=== PATIENT | male | born 1970 | race Caucasian/White ===

== ENCOUNTER 2025-02-27 11:02 | Emergency (ER) | payer OTHER, SELFPAY ==
--- NOTE | ~2025-02-27 | XR_ITS ---
EXAMINATION: XR LUMBOSACRAL SPINE CLINICAL INFORMATION: low back pain COMPARISON: None available. TECHNIQUE: Three views of the lumbosacral spine. FINDINGS: Vestigial ribs are present at T12. There are 5 nonrib-bearing lumbar segments. There is subtle loss of height from superior L1. T12-L1: There is mild disc space narrowing with endplate sclerosis and osteophytes. L1-L2: Unremarkable L2-L3: Unremarkable L3-L4: Mild loss of disc height and posterior endplate osteophytes with mild facet sclerosis. L4-L5: There is mild loss disc height with endplate sclerosis and small osteophytes. There is also facet sclerosis. L5-S1: Unremarkable XR/XR lumbar spine 2-3V IMPRESSION: There is mild loss of height from superior L1 and endplate sclerosis which could be degenerative, but could be related to a mild compression fracture. Correlate with history and symptoms. Mild multilevel degenerative changes. Electronically signed by: Valeriano Turner MD 02/27/2025 12:19 PM DAVION TODD
--- NOTE | ~2025-02-27 | CT_ITS ---
EXAMINATION: CT ABDOMEN PELVIS WITHOUT IV CONTRAST HISTORY: back pain. blood in urine. kidney stones> COMPARISON: There are no prior studies available for comparison. TECHNIQUE: CT scan of the abdomen and pelvis was performed without contrast using standard departmental protocol. Coronal and sagittal reformatted images were generated and reviewed. Oral contrast material was not administered per department protocol. This CT exam was performed with one or more of the following dose reduction techniques: automated exposure control, adjustment of the mA and/or kV according to patient size, use of iterative reconstruction technique. DLP: 710 mGy-cm FINDINGS: LOWER CHEST: The visualized lung bases are clear. There is no pleural effusion. CARDIOVASCULATURE: The heart is normal in size. There is no pericardial effusion. LIVER: The liver is normal in size and contour. The liver has an unremarkable unenhanced appearance. GALLBLADDER / BILE DUCTS: The gallbladder is unremarkable. There is no intra or extrahepatic biliary ductal dilatation. SPLEEN: The spleen is normal in size and has an unremarkable unenhanced appearance. PANCREAS: The pancreas has an unremarkable unenhanced appearance. ADRENAL GLANDS: Unremarkable. KIDNEYS/RETROPERITONEUM: No renal or ureteral calculi are identified. There is no hydronephrosis or hydroureter. There is a probable 1.8 cm cyst in the interpolar region of the right kidney. A smaller hyperdense focus is seen at the upper pole which may represent a proteinaceous cyst. LYMPH NODES: No retroperitoneal lymphadenopathy is identified in the abdomen or pelvis. VASCULATURE: The abdominal aorta demonstrates atherosclerotic calcification, but is normal in caliber. MESENTERY/PERITONEUM: No free fluid. No masses. There is no free intraperitoneal gas. STOMACH: The stomach is collapsed, limiting evaluation. SMALL BOWEL: The small bowel is normal in caliber. COLON: The colon is unremarkable. APPENDIX: Normal. URINARY BLADDER/PELVIC ORGANS: The urinary bladder is unremarkable. The prostate is normal in size. BONES / SOFT TISSUES: There is a small fat-containing umbilical hernia. The bones are intact. CT/CT abdomen pelvis wo IV con IMPRESSION: No evidence of nephrolithiasis or ureteral obstruction. Possible subcentimeter proteinaceous cyst at the upper pole of the right kidney. This could be confirmed with ultrasound. Electronically signed by: Jack Meadows MD 02/27/2025 03:06 PM EST RP
--- NOTE | 2025-02-27 11:37 | ED_ITS ---
HPI - Back Pain/Injury General Chief Complaint: Back Pain/Injury Stated Complaint: lower back pain Time Seen by Provider: 02/27/25 11:42 Source: patient, family and old records reviewed Mode of arrival: ambulatory Limitations: no limitations History of Present Illness ED Provider: ARI FLORES Narrative: 54-year-old male with past medical history of lumbar herniated disc he has also had kidney stones but this feels different from kidney stones. 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 He has no associated neuro symptoms, urinary symptoms, fevers, chills. He has no loss of bowel or bladder incontinence, he has no saddle anesthesia. He has no red flags such as IVDA or blood thinner use. He was not sure what to take for it so he has not had any analgesia at this time. It does bring down to his buttocks. MD elicited complaint: back pain and back injury Pertinent past history: prior back pain Onset (ago): day(s) (few) Timing: intermittent Severity: moderate Similar Symptoms Previously: No Quality: throbbing Location: lumbar spine and left flank Radiation: buttocks Exacerbating factors: movement, walking and coughing/sneezing Relieving factors: none Associated symptoms: denies other symptoms Work related injury: No Related Data Previous Rx's ?Medication ?Instructions ?Recorded diazepam 5 mg tablet (Valium) 5 mg PO TID PRN muscle s pasm #10 02/27/25 tabs lidocaine 5 % topical patch 1 patch topical DAILY #30 ea 02/27/25 Allergies Allergy/AdvReac Type Severity Reaction Status Date / Time No Known Allergies Allergy Verified 02/27/25 11:41 Review of Systems 2 Review of Systems: Constitutional : No Weight loss, No Fever, No Chills, ENT/Mouth : No Hearing loss, No Ear Pain, No Nasal Congestion, No Sinus Pain, No Hoarseness, No sore throat, No Rhinorrhea, No Swallowing Difficulty Cardiovascular : No Chest Pain, No SOB Respiratory : No Cough, No Dyspnea Gastrointestinal : No Nausea, No Vomiting, No Diarrhea, No abdominal Pain, No Hematochezia, No Melena Genitourinary : No Dysuria, No Urinary Frequency, No Hematuria, No Urinary Incontinence, Musculoskeletal : positive back pain Skin : No Skin Lesions, No rash Neuro : No Weakness, No Numbness, No Paresthesias, no loss of bowel or bladder incontinence, no saddle anesthesia Yes all other systems are reviewed and are negative PENDING SALE TO [facility] Past Medical History Attestation statement: The following information was validated with the patient. Source: old records reviewed Medical History Herniated lumbar intervertebral disc Social History Social History (Updated 02/27/25 @ 11:39 by Zaina Hyman DO) Patient Tobacco Use Status: Former Tobacco user Advance Directives: No Advance Directives Information Provided: Yes Physical Exam 2 Vital Signs: Vital Signs: Last Vital Signs Temp 97.5 F 02/27/25 16:25 Pulse 81 02/27/25 16:25 Resp 18 02/27/25 16:25 BP 161/97 H 02/27/25 16:25 Pulse Ox 98 02/27/25 16:25 O2 Del Method Room Air 02/27/25 16:25 BMI result Body Mass Index 34.6 Appearance: Alert. Oriented X3. No acute distress. Eyes: Pupils equal, round and reactive to light. ENT: Pharynx normal. Neck: Normal inspection. Neck supple. CVS: Normal heart rate and rhythm. Pulses normal. Respiratory: No respiratory distress. Breath sounds normal. Abdomen: Soft and nontender. Back: He has tenderness to palpation along the left PSIS. He is neurovascularly intact distally. He has a 2+ bilateral deep tendon reflex, he has 2+ DP pulses. He has SILT and inner thighs. Skin: Skin warm and dry. Normal skin color. Normal skin turgor. Extremities: No lower extremity edema. Neuro: Oriented X 3. No motor deficit. No sensory deficit. CN2-12 intact Course Reevaluation(s) Reevaluation #1: Patient has had labs drawn and cat scan due to slight blood in urine. CT scan negative for kidney stones but does shows cysts with patient was made aware of. Labs. All functions normal. Patient is discharged with Valium and pain medication. Patient given instructions for follow-up with Dr. Pettit's aviation technical systems specialist Time: 16:06 Medications Administered Discontinued Medications Generic Name Dose Route Start Last Admin Trade Name Freq PRN Reason Stop Dose Admin Diazepam 5 mg 02/27/25 11:41 02/27/25 11:48 Diazepam 5 Mg Tablet PO 02/27/25 11:42 5 mg ONCE ONE Administration Ketorolac Tromethamine 30 mg 02/27/25 12:59 02/27/25 13:10 Ketorolac Tromethamine 30 Mg/Ml Vial IM 02/27/25 13:00 30 mg ONCE ONE Administration Lidocaine 1 patch 02/27/25 11:41 02/27/25 11:48 Lidocaine 4 % Patch Adh..Patch TRANSDERMA 02/27/25 11:42 1 patch ONCE ONE Administration Protocol Medical Decision Making Medical Decision Making [facility] Narrative: 54-year-old male with remote past medical history of remote lumbar herniated discs as well as renal colic now here with left low back pain and mild radicular symptoms to the left buttock. He has no red flags on exam and no cauda equina. Overall benign appearing it is reproducible on exam. At this time is going to start on a lidocaine patch and Valium. Given his age I will obtain an x-ray and urine study. Differential Diagnosis Differential Diagnoses: The differential diagnosis associated with the presentation includes Back spasm, lumbar radiculopathy, herniated disc, less likely kidney stone given prior episode this does not feel similar his abdomen is benign I do not think he has an abdominal aortic aneurysm He has no signs of cauda equina on exam Admission/Observation Consideration of admission/observation: Escalation of care including admission/observation considered Lab Data [facility] Lab Attestation statement: I reviewed the patient's lab results. 02/27/25 14:37 02/27/25 14:37 Labs: Lab Results 02/27/25 02/27/25 Range/Units 12:39 14:37 WBC 6.4 (4.8-10.8) X10*3/uL RBC 4.86 (4.60-5.80) X10*6/uL Hgb 16.1 (14.0-18.0) g/dl Hct 46.2 (42.0-52.0) % MCV 95.1 (80.0-98.0) fL MCH 33.1 H (27.0-33.0) pg MCHC 34.8 (31.0-36.0) g/dl RDW 12.3 (11.0-16.0) % Plt Count 205 (160-400) X10*3/uL MPV 10.2 (9.4-12.4) fL Immature Gran % (Auto) 0.3 (0.0-0.4) % Neut % (Auto) 58.6 (45-73) % Lymph % (Auto) 32.4 (20-40) % [place] % (Auto) 7.3 (2-11) % Eos % (Auto) 0.8 (0-4) % Baso % (Auto) 0.6 (0-2) % Lymph # (Auto) 2.1 (1.2-4.9) X10*3/uL [place] # (Auto) 0.5 (0.1-1.2) X10*3/uL Eos # (Auto) 0.1 (0.0-0.4) X10*3/uL Baso # (Auto) 0.0 (0.0-0.2) X10*3/uL Abs Immat Gran (auto) 0.02 (0.00-0.03) X10*3/uL Absolute Neuts (auto) 3.8 (2.0-8.3) x10*3/uL Absolute Nucleated RBC 0.000 (0.0-0.012) X10*3/uL Nucleated RBC % (auto) 0.0 (0.0-0.2) /100WBC Sodium 139 (135-145) mmol/L Potassium 4.2 (3.3-5.1) mmol/L Chloride 106 (96-108) mmol/L Carbon Dioxide 28 (22-29) mmol/L Anion Gap 9 L (12-20) BUN 15 (9-16) mg/dL Creatinine 0.80 (0.5-1.4) mg/dL Estim Creat Clear Calc 131.6 Estimated GFR > 60 Random Glucose 95 (60-115) mg/dL Calcium 8.5 (8.4-10.2) mg/dL Total Bilirubin 0.6 (0.0-1.0) mg/dL AST 45 H (5-37) U/L ALT 53 H (0-40) U/L Alkaline Phosphatase 51 (39-117) U/L Total Protein 7.3 (6.5-8.0) g/dL Albumin 4.2 (3.5-5.0) g/dL Urine Color Yellow Urine Appearance Cloudy Urine pH 6.0 (5.0-9.0) Ur Specific [place] 1.020 (1.005-1.025) Urine Protein Trace (Neg-Trace) mg/dL Urine Glucose (UA) Negative (Negative) mg/dL Urine Ketones Negative (Negative) mg/dL Urine Blood Moderate (2+) H (Negative) Urine Nitrite Negative (Negative) Ur Leukocyte Esterase Negative (Negative) Urine RBC 3-5 H (0-2) /HPF Urine WBC 0-5 (0-5) /HPF Ur Squamous Epith Cells 0-2 (0-2) /HPF Urine Bacteria None Seen (None Seen) Hyaline Casts 0-2 (0-2) /LPF Independent Interpretation I performed an independent interpretation of an: Plain X-Ray Radiology Impression Discussion of test interpretation with radiology: I have reviewed the radiologist's reading. Independent Historian Clinical information obtained from an independent historian. History obtained from or confirmed by: Spouse External Record Review External record reviewed: Outpatient record Prescription Management I considered prescription management with: Pain Medication and Other Discharge Plan Discharge Clinical Impression: Lumbar radiculopathy Patient Disposition: Home, Self-Care Instructions: Lumbar Radiculopathy (ED) Additional Instructions: At this time there is likely old possible compression fracture of L1 she does not really correlate with your symptoms will likely your prior old injury Your urine was unremarkable You need to rest and limit lifting to 10 lb for 3 weeks Return for any worsening symptoms such as pain, numbness in the private area, loss of control of bowel or bladder Take medications as prescribed you can also alternate Tylenol and Motrin for your pain. FINDINGS: Vestigial ribs are present at T12. There are 5 nonrib-bearing lumbar segments. There is subtle loss of height from superior L1. T12-L1: There is mild disc space narrowing with endplate sclerosis and osteophytes. L1-L2: Unremarkable L2-L3: Unremarkable L3-L4: Mild loss of disc height and posterior endplate osteophytes with mild facet sclerosis. L4-L5: There is mild loss disc height with endplate sclerosis and small osteophytes. There is also facet sclerosis. L5-S1: Unremarkable XR/XR lumbar spine 2-3V IMPRESSION: There is mild loss of height from superior L1 and endplate sclerosis which could be degenerative, but could be related to a mild compression fracture. Correlate with history and symptoms. Mild multilevel degenerative changes. Prescriptions: New lidocaine 5 % adhesive patch,medicated 1 patch topical DAILY Qty: 30 0RF Rx Instructions: leave on most painful area for up to 12 hrs diazepam [Valium] 5 mg tablet 5 mg PO TID PRN (Reason: muscle spasm) Qty: 10 0RF Rx Instructions: side effect is drowsiness. Do not take at work or while driving. Referrals: Santiago Collins MD, PhD [Physician, Neuro Spine] - 2 days Referral Note: Lumbar radiculopathy compression fracture question Clinical Impression: Lumbar radiculopathy Stand Alone Forms: Work/School Release Interventions: ED Discharge Assessment Last Done: 02/27/25 16:25 Discharge Date/Time: 02/27/25 16:27 Print Language: [place]ayan
[2025-02-27 11:38] VITALS: BP 155/106; PULSE 88; RESP 18; TEMP 36.6; O2SAT 99; BMI 34.6
[2025-02-27 11:42] VITALS: BP 159/96
[2025-02-27] MEDS: Lidocaine 4 % Patch ADH..PATCH 1 PATCH TRANSDERMA (11:48)
[2025-02-27 12:47] LABS: Appearance Urine Cloudy; Glucose Urine UA Negative (Negative); PH 6.0 (5.0-9.0); Specific Gravity - Urine 1.020 (1.005-1.025); UMIC TRIGGER UACC YES
[2025-02-27 14:48] LABS: MANUAL DIFF FLAG NO
[2025-02-27 14:52] LABS: Hematocrit 46.2 % (42.0-52.0); Hemoglobin 16.1 g/dl (14.0-18.0); Imm Gran Abs Auto 0.02 X10*3/uL (0.00-0.03); Imm Gran Pct Auto 0.3 % (0.0-0.4); Lymphocytes Absolute Auto 2.1 X10*3/uL (1.2-4.9); Mean Corpuscular HGB Conc 34.8 g/dl (31.0-36.0); Mean Corpuscular Hemoglobin 33.1 pg (27.0-33.0); Mean Corpuscular Volume 95.1 fL (80.0-98.0); NRBC Abs Auto 0.000 X10*3/uL (0.0-0.012); NRBC Pct Auto 0.0 /100WBC (0.0-0.2); Platelet Count 205 X10*3/uL (160-400); Red Blood Count 4.86 X10*6/uL (4.60-5.80); White Blood Count 6.4 X10*3/uL (4.8-10.8)
[2025-02-27 15:05] LABS: Alanine Aminotransferase 53 U/L (0-40); Albumin Level 4.2 g/dL (3.5-5.0); Alkaline Phosphatase 51 U/L (39-117); Anion Gap 9 (12-20); Aspartate Amino Transferase 45 U/L (5-37); Blood Urea Nitrogen 15 mg/dL (9-16); Calcium 8.5 mg/dL (8.4-10.2); Carbon Dioxide 28 mmol/L (22-29); Chloride 106 mmol/L (96-108); Creatinine Clr Calc Pharmacy 131.6; Estimated Glomerular Filt Rate > 60; Potassium 4.2 mmol/L (3.3-5.1); Sodium 139 mmol/L (135-145); Total Protein 7.3 g/dL (6.5-8.0)
--- NOTE | 2025-02-27 15:58 | ED.GENADULT ---
HPI - General Adult General Chief complaint: Back Pain/Injury Stated complaint: lower back pain Time Seen by Provider: 02/27/25 11:42 Source: patient, family and old records reviewed Mode of arrival: ambulatory Limitations: no limitations Related Data Previous Rx's ?Medication ?Instructions ?Recorded diazepam 5 mg tablet (Valium) 5 mg PO TID PRN muscle spasm #10 02/27/25 tabs lidocaine 5 % topical patch 1 patch topical DAILY #30 ea 02/27/25 Allergies Allergy/AdvReac Type Severity Reaction Status Date / Time No Known Allergies Allergy Verified 02/27/25 11:41 [facility] Past Medical History Medical History Herniated lumbar intervertebral disc Social History Social History (Updated 02/27/25 @ 11:39 by Zaina Hyman DO) Patient Tobacco Use Status: Former Tobacco user Advance Directives: No Advance Directives Information Provided: Yes Physical Exam ED Vital Signs: Vital Signs - 24 hr 02/27/25 11:38 02/27/25 11:42 Temperature 98 F Pulse Rate 88 Respiratory Rate 18 Blood Pressure 155/106 H 159/96 H Pulse Oximetry 99 Oxygen Delivery Method Room Air BMI result Body Mass Index 34.6 Medications Administered Discontinued Medications Generic Name Dose Route Start Last Admin Trade Name Freq PRN Reason Stop Dose Admin Diazepam 5 mg 02/27/25 11:41 02/27/25 11:48 Diazepam 5 Mg Tablet PO 02/27/25 11:42 5 mg ONCE ONE Administration Ketorolac Tromethamine 30 mg 02/27/25 12:59 02/27/25 13:10 Ketorolac Tromethamine 30 Mg/Ml Vial IM 02/27/25 13:00 30 mg ONCE ONE Administration Lidocaine 1 patch 02/27/25 11:41 02/27/25 11:48 Lidocaine 4 % Patch Adh..Patch TRANSDERMA 02/27/25 11:42 1 patch ONCE ONE Administration Protocol Medical Decision Making Lab Data 02/27/25 14:37 02/27/25 14:37 Labs: Lab Results 02/27/25 02/27/25 Range/Units 12:39 14:37 WBC 6.4 (4.8-10.8) X10*3/uL RBC 4.86 (4.60-5.80) X10*6/uL Hgb 16.1 (14.0-18.0) g/dl Hct 46.2 (42.0-52.0) % MCV 95.1 (80.0-98.0) fL MCH 33.1 H (27.0-33.0) pg MCHC 34.8 (31.0-36.0) g/dl RDW 12.3 (11.0-16.0) % Plt Count 205 (160-400) X10*3/uL MPV 10.2 (9.4-12.4) fL Immature Gran % (Auto) 0.3 (0.0-0.4) % Neut % (Auto) 58.6 (45-73) % Lymph % (Auto) 32.4 (20-40) % [place] % (Auto) 7.3 (2-11) % Eos % (Auto) 0.8 (0-4) % Baso % (Auto) 0.6 (0-2) % Lymph # (Auto) 2.1 (1.2-4.9) X10*3/uL [place] # (Auto) 0.5 (0.1-1.2) X10*3/uL Eos # (Auto) 0.1 (0.0-0.4) X10*3/uL Baso # (Auto) 0.0 (0.0-0.2) X10*3/uL Abs Immat Gran (auto) 0.02 (0.00-0.03) X10*3/uL Absolute Neuts (auto) 3.8 (2.0-8.3) x10*3/uL Absolute Nucleated RBC 0.000 (0.0-0.012) X10*3/uL Nucleated RBC % (auto) 0.0 (0.0-0.2) /100WBC Sodium 139 (135-145) mmol/L Potassium 4.2 (3.3-5.1) mmol/L Chloride 106 (96-108) mmol/L Carbon Dioxide 28 (22-29) mmol/L Anion Gap 9 L (12-20) BUN 15 (9-16) mg/dL Creatinine 0.80 (0.5-1.4) mg/dL Estim Creat Clear Calc 131.6 Estimated GFR > 60 Random Glucose 95 (60-115) mg/dL Calcium 8.5 (8.4-10.2) mg/dL Total Bilirubin 0.6 (0.0-1.0) mg/dL AST 45 H (5-37) U/L ALT 53 H (0-40) U/L Alkaline Phosphatase 51 (39-117) U/L Total Protein 7.3 (6.5-8.0) g/dL Albumin 4.2 (3.5-5.0) g/dL Urine Color Yellow Urine Appearance Cloudy Urine pH 6.0 (5.0-9.0) Ur Specific [place] 1.020 (1.005-1.025) Urine Protein Trace (Neg-Trace) mg/dL Urine Glucose (UA) Negative (Negative) mg/dL Urine Ketones Negative (Negative) mg/dL Urine Blood Moderate (2+) H (Negative) Urine Nitrite Negative (Negative) Ur Leukocyte Esterase Negative (Negative) Urine RBC 3-5 H (0-2) /HPF Urine WBC 0-5 (0-5) /HPF Ur Squamous Epith Cells 0-2 (0-2) /HPF Urine Bacteria None Seen (None Seen) Hyaline Casts 0-2 (0-2) /LPF Discharge Plan Discharge Clinical Impression: Lumbar radiculopathy Patient Disposition: Home, Self-Care Instructions: Lumbar Radiculopathy (ED) Additional Instructions: At this time there is likely old possible compression fracture of L1 she does not really correlate with your symptoms will likely your prior old injury Your urine was unremarkable You need to rest and limit lifting to 10 lb for 3 weeks Return for any worsening symptoms such as pain, numbness in the private area, loss of control of bowel or bladder Take medications as prescribed you can also alternate Tylenol and Motrin for your pain. FINDINGS: Vestigial ribs are present at T12. There are 5 nonrib-bearing lumbar segments. There is subtle loss of height from superior L1. T12-L1: There is mild disc space narrowing with endplate sclerosis and osteophytes. L1-L2: Unremarkable L2-L3: Unremarkable L3-L4: Mild loss of disc height and posterior endplate osteophytes with mild facet sclerosis. L4-L5: There is mild loss disc height with endplate sclerosis and small osteophytes. There is also facet sclerosis. L5-S1: Unremarkable XR/XR lumbar spine 2-3V IMPRESSION: There is mild loss of height from superior L1 and endplate sclerosis which could be degenerative, but could be related to a mild compression fracture. Correlate with history and symptoms. Mild multilevel degenerative changes. Prescriptions: New lidocaine 5 % adhesive patch,medicated 1 patch topical DAILY Qty: 30 0RF Rx Instructions: leave on most painful area for up to 12 hrs diazepam [Valium] 5 mg tablet 5 mg PO TID PRN (Reason: muscle spasm) Qty: 10 0RF Rx Instructions: side effect is drowsiness. Do not take at work or while driving. Referrals: Santiago Collins MD, PhD [Physician, Neuro Spine] - 2 days Referral Note: Lumbar radiculopathy compression fracture question Clinical Impression: Lumbar radiculopathy Stand Alone Forms: Work/School Release Print Language: Citizen [place]
--- NOTE | 2025-02-27 16:23 | PC.NURSE ---
pt was treated in the PIT chair and reports some improvement with pain with rest. Plan is for follow up with PCP and audio visual specialist. Pt agreeable to dc plan
[2025-02-27 16:25] VITALS: BP 161/97; PULSE 81; RESP 18; TEMP 36.4; O2SAT 98
--- OUTSIDE RECORDS SUMMARY | 2025-02-27 17:04 | XMS_ITS | Encounter Summary ---
Author Organization [facility] Address [address] [place] [address] Care Team Providers Care Clothespin Drier Operator Name Role Phone Feng Ram MD Primary Care Provider [phone] Feng Ram MD Unavailable [phone] Pcp, No Primary Care Provider Unavailabl e Encounter Details Date Type Department Care Team (Late st Contact Info) Description 02/21/2020 Scanned Document [address] [phone] Provider, Generic Social History Tobacco Use Types Packs/Day Years Used Date Smoking Tobacco: Former Cigarettes 0 Q uit: 2014 Smokeless Tobacco: Never Alcohol Use Standard Drinks/Week Comments Yes 10 (1 standard drink = 0.6 oz pu re alcohol) 15 drinks/week PHQ-2 Answer Date Recorded PHQ-2 Total Score 4 12/07/2019 Sex and Gender Information Value Date Recorded Sex Assigned at Not on file Legal Sex Male 4:22 PM EDT Gender Identity Not Listed 01/13/2020 7:11 AM EDT Sexual Orientation Choose not to disclose 2019 7:11 AM EDT 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 us Generic Provider HX AMB PROCEDURES Final Result documented in this encounter Visit Diagnoses Not on filedocumented in this encounter Care Teams Clothespin Drier Operator Relationship Specialty Start Date End Date Feng Ram MD [address] [place] [address] PCP - General Internal Medicine 10/08/14 05/12/23 Feng Ram MD [address] [place] [address] PCP - [employer] Attributed 12/13/18 02/11/23 Pcp, No PCP - General General Medicine 05/13/23 Sandra Henriquez Optometry 12/07/19 documented as of this encounter
--- OUTSIDE RECORDS SUMMARY | 2025-02-27 17:04 | XMS_ITS | Encounter Summary ---
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 No / Unsure 01/17/2020 9:13 AM EST documented as of this encounter Plan of Treatment Not on file documented as of this encounter Visit Diagnoses Not on filedocumented in this encounter Care Teams Care Companion Relationship Specialty Start Date End Date Feng Ram MD [address] [place] [address] PCP - General Internal Medicine 10/08/14 05/12/23 Feng Ram MD [address] [place] [address] PCP - [employer] Commercial Attributed 12/13/18 02/11/23 Pcp, No PCP - General General Medicine 05/13/23 Sandra Henriquez Optometry 12/07/19 documented as of this encounter
--- OUTSIDE RECORDS SUMMARY | 2025-02-27 17:04 | XMS_ITS | Encounter Summary ---
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 No / Unsure 01/01/2020 11:31 AM EDT documented as of this encounter Plan of Treatment Not on file documented as of this encounter Visit Diagnoses Not on filedocumented in this encounter Care Teams Can Vacuum Tester Relationship Specialty Start Date End Date Feng Ram MD [address] [place] [address] PCP - General Internal Medicine 10/08/14 05/12/23 Feng Ram MD [address] [place] [address] PCP - [employer] Commercial Attributed 12/13/18 02/11/23 Pcp, No PCP - General General Medicine 05/13/23 Sandra Henriquez Optometry 12/07/19 documented as of this encounter
--- OUTSIDE RECORDS SUMMARY | 2025-02-27 17:05 | XMS_ITS | Encounter Summary ---
Author Organization 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
--- OUTSIDE RECORDS SUMMARY | 2025-02-27 17:05 | XMS_ITS | Encounter Summary ---
Author Organization [facility] Address [address] [place] [address] Care Team Providers Care Animal Ecologist Name Role Phone Feng Ram MD Primary Care Provider [phone] Feng Ram MD Unavailable [phone] Pcp, No Primary Care Provider Unavailabl e Encounter Details Date Type Department Care Team (Late st Contact Info) Description 04/25/2015 Scanned Document [address] [phone] Provider, Generic Social History Tobacco Use Types Packs/Day Years Used Date Smoking Tobacco: Former Alcohol Use Standard Drinks/Week Comments Yes 0 (1 standard drink = 0.6 oz pur e alcohol) 3-4 drinks/day Sex and Gender Information Value Date Recorded Sex Assigned at Not on file Legal Sex Male 4:22 PM EDT Gender Identity Not Listed 01/13/2020 7:11 AM EDT Sexual Orientation Choose not to disclose 2019 7:11 AM EDT 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
--- OUTSIDE RECORDS SUMMARY | 2025-02-27 17:05 | XMS_ITS | Encounter Summary ---
Author Organization [facility] Address [address] [place] [address] Care Team Providers Care Record Librarian Name Role Phone Feng Ram MD Primary Care Provider Feng Ram MD Unavailable [phone] Pcp, No Primary Care Provider Unavailabl e Encounter Details Date Type Department Care Team (Late st Contact Info) Description 08/21/2017 Scanned Document [address] [id number] Provider, Generic Social History Tobacco Use Types Packs/Day Years Used Date Smoking Tobacco: Former Smokeless Tobacco: Never Alcohol Use Standard Drinks/Week Comments Yes 10 (1 standard drink = 0.6 oz pu re alcohol) social Sex and Gender Information Value Date Recorded Sex Assigned at Not on file Legal Sex Male 4:22 PM EDT Gender Identity Not Listed 01/13/2020 7:11 AM EDT Sexual Orientation Choose not to disclose 2019 7:11 AM EDT 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
--- OUTSIDE RECORDS SUMMARY | 2025-02-27 17:05 | XMS_ITS | Clinical Summary ---
Author Organization [facility] Address [address] [place] [address] Care Team Providers Care Area Development Consultant Name Role Phone Pcp, No Primary Care Provider Unavailabl e Allergies Active Allergy Reactions Criticality Noted Date Comments Owen Inhibitors Rash/Dermatitis,Myal gene/Myositis/Arth ralgia/Arthritis Low 04/24/2015 Atenolol Other (See Comments) 06/19/2016 Fatigue Losartan Diarrhea,Myalgia/Darian sitis/Arthralgia/ Arthritis Low 02/06/2020 Medications No known medications Active Problems Problem Noted Date Diagnosed Date Gout of foot 12/06/2019 Murmur 12/06/2019 Obesity 08/23/2017 Essential hypertension 10/08/2014 Resolved Problems Problem Noted Date Diagnosed Date Resolved Date Acute right-sided low back pain 10/28/2016 06/09/2017 Work related injury 12/03/2015 04/10/19 17 Strain of lumbar paraspinal muscle 12/03/2015 04/10/2016 Herpes zoster 10/27/2013 04/25/2015 Immunizations Immunization Administration Dates Next Due Covid-19 Adenovirus Vaccine - Peter 08/10/2020 Tdap 04/25/2015 Family History Medical History Relation Name Comments Heart defect Father Diabetes Mother Hypertension Mother Relation Name Status Comments Father Mother Social History Tobacco Use Types Packs/Day Years [...] 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 Not on file Not on file Last Filed Vital Signs Vital Sign Reading Time Taken Comments Blood Pressure 166/97 10/21/2020 9:08 AM EDT Pulse 67 10/21/2020 9:08 AM EDT Temperature 36.4 C (97.6 F) 10/21/2020 9:08 AM EDT Respiratory Rate 20 02/06/2020 4:24 PM EST Oxygen Saturation 97% 10/21/2020 9:08 AM EDT Inhaled Oxygen Concentration - - Weight 113 kg (250 lb) 02/06/2020 4:24 PM EST Height 180.3 cm (5' 11 ) 02/06/2020 4:24 PM EST Body Mass Index 34.87 02/06/2020 4:24 PM EST Plan of Treatment Health Maintenance Due Date Last Done Comments Hepatitis C Virus Screening 1968 HIV Screening 1981 Hepatitis B Vaccines (1 of 3 - 19+ 3-dose series) 05/1987 Pap Smear (Ages 21-65) 1989 Pneumococcal Vaccines 50+ (1 of 1 - PCV) 2018 RSV Vaccine 50 years and old er and Patients (1 - Risk 50-74 years 1-dose series) 2018 Zoster (Shingles) Vaccine (1 of 2) 2018 Influenza Vaccine 10/13/2024 1968 COVID-19 Vaccine (2 - 2024- season) 2024 DTaP/Tdap/Td Vaccines (2 - Td or Tdap) 04/25/2025 Colonoscopy 01/16/2030 01/17/2020 [facility] Care Teams Area Development Consultant Relationship Specialty Start Date End Date Pcp, No PCP - General General Medicine 05/13/23 Sandra Henriquez Optometry 12/07/19
--- OUTSIDE RECORDS SUMMARY | 2025-02-27 17:05 | XMS_ITS | Encounter Summary ---
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
== END 2025-02-27 16:27 | disposition home or self-care (01) ==
PROVIDERS: Physician Assistant; Emergency Provider Emergency Medicine
DX: M54.16 Radiculopathy, lumbar region (principal); Z87.39 Personal history of other diseases of the musculoskeletal system and connective tissue; Z87.442 Personal history of urinary calculi; Z79.899 Other long term (current) drug therapy
CPT/HCPCS: 36415; 72100; 74176; 80053; 81001; 85025; 96372; 99283; 99284; J1885

== ENCOUNTER → 2025-02-27 11:41 | Outpatient (BNV) | payer OTHER, SELFPAY | PROVIDERS: Emergency Provider Emergency Medicine; Visit Provider Radiology Diagnostic Radiology | DX: R31.9 Hematuria, unspecified (principal); M54.50 Low back pain, unspecified; M51.360 Other intervertebral disc degeneration, lumbar region with discogenic back pain only; M41.86 Other forms of scoliosis, lumbar region; R29.890 Loss of height | CPT/HCPCS: 72100; 74176 ==